=== PATIENT | male | born 2000 | race Caucasian/White ===

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

== ENCOUNTER 2020-04-19 08:53 | Emergency (ER) | payer OTHER, SELFPAY ==
[2020-04-19] MEDS ORDERED: ONDANSETRON 4 MG/2 ML VIAL ONE (09:44)
[2020-04-19] MEDS ORDERED: NA CHLORIDE 0.9% 1,000 ML ONE (09:44)
[2020-04-19] MEDS ORDERED: FAMOTIDINE 20 MG/2 ML VIAL IV ONE (09:44)
[2020-04-19 09:57] LABS: Basophils % 0.6 % (0-1.3); Hematocrit 45.6 % (39.6-49.0); Lymphocytes % 19.5 % (15.3-44.8); RBC Red Blood Cell Count 4.87 M/uL (4.33-5.43)
[2020-04-19 10:16] LABS: ALT/SGPT 19 U/L (12-78); AST/SGOT 7 U/L (15-37); Albumin 3.9 g/dL (3.4-5.0); Alkaline Phosphatase 83 U/L (45-117); BUN Blood Urea Nitrogen 12 mg/dL (7-18); Bicarbonate 31 mmol/L (21-32); Bilirubin Direct 0.2 mg/dL (0-0.2); Bilirubin Total 0.5 mg/dL (0.2-1.0); Glucose Level 88 mg/dL (74-106); Lipase 246 U/L (73-393); Potassium 4.2 mmol/L (3.5-5.1); Protein, Total 7.4 g/dL (6.4-8.2); Sodium Level 143 mmol/L (136-145)
[2020-04-19 10:32] LABS: Blood Morphology Comment NOT SEEN (NOT SEEN); Platelet Estimate ADEQ
--- NOTE | 2020-04-19 11:15 | RAD REPORT ---
EXAM DESCRIPTION: CT - Abdomen Pelvis W Contrast - 04/19/2020 10:37 am CLINICAL HISTORY: Abdominal pain COMPARISON: none. TECHNIQUE: Computed axial tomography of the abdomen pelvis was obtained. 100 cc Isovue-300 was admin istered intravenously. Oral contrast was not requested which limits evaluation of bowel and appendix. All CT scans are performed using dose optimization technique as appropriate and may include automated exposure control or mA/KV adjustment according to patient size. FINDINGS: Periportal hepatic edema. Spleen, pancreas, adrenal and kidneys appear unremarkable. There is no evidence of diverticulitis. The wall of the multiple loops of ileum is thickened. Small amount of ascites IMPRESSION: Thickening of the wall of multiple loops of ileum. This could be secondary to inflammati on, infection or ischemia Periportal hepatic edema is a nonspecific finding but can be associated with inflammation
[2020-04-19 11:27] LABS: Urine Blood NEGATIVE (NEG); Urine Glucose NEGATIVE (NEG); Urine Protein NEGATIVE (NEG); Urine pH 5.5 (5.0-7.0)
[2020-04-19] MEDS ORDERED: CIPROFLOXACIN 400mg IV 400 MG/200 ML BAG IV ONE (12:02)
[2020-04-19] MEDS ORDERED: METRONIDAZOLE 500mg IVPB 500 MG/100 ML BAG IV ONE (12:02)
--- NOTE | 2020-04-19 13:07 | EDPHYS ---
Physician Documentation [facility] Name: Jack Luna Age: 19 yrs Sex: Male : 2000 Arrival Date: 04/19/2020 Time: 08:56 Bed 18 Private MD: Johan Haynes HPI: 04/19 09:24 This 19 yrs old Male presents to ER via Ambulatory with complaints of jmm Abdominal Pain. 09:24 The patient presents with abdominal pain in the epigastric area. Onset: The jmm symptoms/episode began/occurred acutely, this morning. The symptoms do not radiate. Associated signs and symptoms: Pertinent negatives: nausea and vomiting, diarrhea, fever, shortness of breath, vomiting. The symptoms are described as achy, sharp. Modifying factors: The symptoms are alleviated by nothing, the symptoms are aggravated by nothing. The patient has not experienced similar symptoms in the past. Patient denies heavy etoh use or history of abdominal surgeries. Historical: - Allergies: 09:03 No Known Allergies; rb1 - Home Meds: 09:03 None [Active]; rb1 - PMHx: 09:03 kawasakis; rb1 - PSHx: 09:03 testicle; rb1 - Immunization history:: Adult Immunizations unknown. - Social history:: Smoking status: Patient reports the use of cigarette tobacco products, smokes one-half pack cigarettes per day. ROS: 09:24 Constitutional: Negative for fever, chills, and weight loss, Cardiovascular: Negative jmm for chest pain, palpitations, and edema, Respiratory: Negative for shortness of breath, cough, wheezing, and pleuritic chest pain. 09:24 Back: Negative for injury and pain, MS/Extremity: Negative for injury and deformity, Skin: Negative for injury, rash, and discoloration, Neuro: Negative for headache, weakness, numbness, tingling, and seizure, Psych: Negative for depression, anxiety, suicide ideation, homicidal ideation, and hallucinations, Allergy/Immunology: Negative for hives, rash, and allergies, Endocrine: Negative for neck swelling, polydipsia, polyuria, polyphagia, and marked weight changes. 09:24 Abdomen/GI: Positive for epigastric. Exam: 09:24 Constitutional: This is a well developed, well nourished patient who is awake, alert, jmm and in no acute distress. Head/Face: atraumatic. Eyes: EOMI, no conjunctival erythema appreciated ENT: Moist Mucus Membranes Neck: Trachea midline, Supple Chest/axilla: Normal chest wall appearance and motion. Cardiovascular: Regular rate and rhythm. No edema appreciated Respiratory: Normal respirations, no respiratory distress appreciated 09:24 Back: Normal ROM Skin: General appearance color normal MS/ Extremity: Moves all extremities, no obvious deformities appreciated, no edema noted to the lower extremities Neuro: Awake and alert, normal gait Psych: Behavior is normal, Mood is normal, Patient is cooperative and pleasant 09:24 Abdomen/GI: Inspection: abdomen appears normal, Bowel sounds: normal, Palpation: soft, moderate abdominal tenderness, in the epigastric area. Vital Signs: 09:03 BP 111 / 72; Pulse 72; Resp 17; Temp 98.8; Pulse Ox 99% ; Weight 53.52 kg; Height 5 ft. rb1 11 in. (180.34 cm); Pain 7/10; 10:00 BP 117 / 67; Pulse 63; Resp 16; Pulse Ox 99% ; rb1 10:54 BP 117 / 51; Pulse 67; Resp 16; Pulse Ox 100% ; rb1 11:53 BP 100 / 56; Pulse 61; Resp 17; Pulse Ox 98% ; rb1 13:00 BP 98 / 63; Pulse 59; Resp 16; Pulse Ox 100% ; rb1 09:03 Body Mass Index 16.46 (53.52 kg, 180.34 cm) rb1 MDM: 09:19 Patient medically screened. [facility] 13:04 Data reviewed: vital signs, nurses notes. Counseling: I had a detailed discussion with patsy the patient and/or guardian regarding: the historical points, exam findings, and any diagnostic results supporting the discharge/admit diagnosis, lab results, radiology results, the need for outpatient follow up, to return to the emergency department if symptoms worsen or persist or if there are any questions or concerns that arise at home. ED course: Patient is alert and non toxic in appearance in the ED. Patient is able to tolerate PO. I discussed the patient with Dr. Tyler whom recommends abx and will follow up with the patient for reevaluation. Patient is otherwise given strict return precautions. Patient understood and agrees with the plan of care. . 04/19 09:24 Order name: Basic Metabolic Panel; Complete Time: 10:17 [facility] 04/19 09:24 Order name: CBC with Diff; Complete Time: 10:35 [facility] 04/19 09:24 Order name: Hepatic Function; Complete Time: 10:17 [facility] 04/19 09:24 Order name: Lipase; Complete Time: 10:17 [facility] 04/19 10:03 Order name: Manual Differential; Complete Time: 10:35 [facility] 04/19 10:42 Order name: Urine Dipstick--Ancillary (enter results); Complete Time: 11:28 04/19 09:24 Order name: IV Saline Lock; Complete Time: 09:45 [facility] 04/19 09:24 Order name: Labs collected and sent; Complete Time: 09:46 [facility] 04/19 10:18 Order name: CT Abd/Pelvis - IV Contrast Only; Complete Time: 11:16 [facility] 04/19 09:24 Order name: Urine Dipstick-Ancillary (obtain specimen); Complete Time: 10:51 jm Administered Medications: 09:45 Drug: NS 0.9% 1000 ml Route: IV; Rate: 1 bolus; Site: right antecubital; rb1 11:03 Follow up: IV Status: Completed infusion rb1 09:45 Drug: Pepcid 20 mg Route: IVP; Site: right antecubital; rb1 10:00 Follow up: Response: No adverse reaction rb1 09:45 Drug: Zofran (Ondansetron) 4 mg Route: IVP; Site: right antecubital; rb1 10:00 Follow up: Response: No adverse reaction rb1 11:57 Drug: Cipro 400 mg Volume: 200 ml; Route: IVPB; Infused Over: 60 mins; Site: right rb1 antecubital; 12:57 Follow up: Response: No adverse reaction; IV Status: Completed infusion aa5 12:13 Drug: Flagyl 500 mg Volume: 100 ml; Route: IVPB; Rate: 200 ml/hr; Infused Over: 30 rb1 mins; Site: right antecubital; 12:45 Follow up: IV Status: Completed infusion aa5 Disposition: 13:52 Co-signature as Attending Physician, Johan HENRY I agree with the assessment and monica plan of care. Disposition: 04/19/20 13:06 Discharged to Home. Impression: Upper abdominal pain, unspecified. - Condition is Stable. - Discharge Instructions: Abdominal Pain, Adult. - Prescriptions for Zofran ODT 4 mg Oral tablet,disintegrating - place 1 tablet by TRANSLINGUAL route every 4-6 hours; 20 tablet. Bentyl 20 mg Oral Tablet - take 2 tablet by ORAL route every 6 hours As needed; 40 tablet. Flagyl 500 mg Oral Tablet - take 1 tablet by ORAL route every 8 hours for 10 days; 30 tablet. Pepcid 20 mg Oral Tablet - take 1 tablet by ORAL route every 12 hours for 10 days; 20 tablet. Cipro 500 mg Oral Tablet - take 1 tablet by ORAL route every 12 hours for 10 days; 20 tablet. - Medication Reconciliation Form, Thank You Letter, Antibiotic Education, Prescription Opioid Use form. - Follow up: Estrada Jaquez MD; When: 1 - 2 days; Reason: Recheck today's complaints, Continuance of care, Re-evaluation by your physician. Signatures: Dispatcher [employer] Johan Saravia MD MD cha Mickail, Joel, PA PA jmm Calderon, Audri, RN RN aa5 Deyanira Jamison RN RN rb1 Corrections: (The following items were deleted from the chart) 13:22 13:06 04/19/2020 13:06 Discharged to Home. Impression: Upper abdominal pain, aa5 unspecified. Condition is Stable. Forms are Medication Reconciliation Form, Thank You Letter, Antibiotic Education, Prescription Opioid Use. Follow up: Estrada Jaquez; When: 1 - 2 days; Reason: Recheck today's complaints, Continuance of care, Re-evaluation by your physician. patsy
--- NOTE | 2020-04-19 13:07 | ER ---
Nurse's Notes [facility] Name: Jack Luna Age: 19 yrs Sex: Male : 2000 Arrival Date: 04/19/2020 Time: 08:56 Bed 18 Private MD: Diagnosis: Upper abdominal pain, unspecified Presentation: 04/19 09:03 Chief complaint: Patient states: Woke up with abdominal pain this morning. Epi gastric rb1 area. Coronavirus screen: At this time, the client does not indicate any symptoms associated with coronavirus-19. Ebola Screen: Patient denies travel to an Ebola-affected area in the 21 days before illness onset. Initial Sepsis Screen: Does the patient meet any 2 criteria? No. Patient's initial sepsis screen is negative. Does the patient have a suspected source of infection? No. Patient's initial sepsis screen is negative. Risk Assessment: Do you want to hurt yourself or someone else? Patient reports no desire to harm self or others. Onset of symptoms was April 19, 2020. 09:03 Method Of Arrival: Ambulatory rb1 09:03 Acuity: VASU 3 rb1 Triage Assessment: 09:03 General: Appears in no apparent distress. comfortable, slender, Behavior is calm, rb1 cooperative, Denies fever. Pain: Complains of pain in epigastric area Pain currently is 7 out of 10 on a pain scale. Pain began this morning. Neuro: Level of Consciousness is awake, alert, obeys commands, Oriented to person, place, time, situation. Cardiovascular: Patient's skin is warm and dry. Respiratory: Airway is patent Respiratory effort is even, unlabored, Respiratory pattern is regular, symmetrical. GI: No signs and/or symptoms were reported involving the gastrointestinal system. : No signs and/or symptoms were reported regarding the genitourinary system. Musculoskeletal: Range of motion: intact in all extremities. Historical: - Allergies: 09: No Known Allergies; rb1 - Home Meds: : None [Active]; rb1 - PMHx: 09:03 kawasakis; rb1 - PSHx: : testicle; rb1 - Immunization history:: Adult Immunizations unknown. - Social history:: Smoking status: Patient reports the use of cigarette tobacco products, smokes one-half pack cigarettes per day. Screenin:03 Abuse screen: Denies threats or abuse. Nutritional screening: No deficits noted. rb1 Tuberculosis screening: No symptoms or risk factors identified. Fall Risk None identified. Assessment: 09:03 General: See triage assessment. rb1 10:00 Reassessment: Patient appears in no apparent distress at this time. No changes from rb1 previously documented assessment. 10:52 Reassessment: Patient appears in no apparent distress at this time. Patient and/or rb1 family updated on plan of care and expected duration. Pain level reassessed. Patient is alert, oriented x 3, equal unlabored respirations, skin warm/dry/pink. 11:48 Reassessment: Patient appears in no apparent distress at this time. Pt. resting with rb1 eyes closed, respirations even, unlabored. 12:22 Reassessment: Patient appears in no apparent distress at this time. Patient and/or rb1 family updated on plan of care and expected duration. Pain level reassessed. Patient is alert, oriented x 3, equal unlabored respirations, skin warm/dry/pink. 13:20 Reassessment: Patient is alert, oriented x 3, equal unlabored respirations, skin aa5 warm/dry/pink. Patient states feeling better. Vital Signs: 09:03 BP 111 / 72; Pulse 72; Resp 17; Temp 98.8; Pulse Ox 99% ; Weight 53.52 kg; Height 5 ft. rb1 11 in. (180.34 cm); Pain 7/10; 10:00 BP 117 / 67; Pulse 63; Resp 16; Pulse Ox 99% ; rb1 10:54 BP 117 / 51; Pulse 67; Resp 16; Pulse Ox 100% ; rb1 11:53 BP 100 / 56; Pulse 61; Resp 17; Pulse Ox 98% ; rb1 13:00 BP 98 / 63; Pulse 59; Resp 16; Pulse Ox 100% ; rb1 09:03 Body Mass Index 16.46 (53.52 kg, 180.34 cm) [facility] ED Course: 08:56 Patient arrived in ED. ag5 09:03 Vinny Stack PA is PHCP. [facility] 09:03 Johan Medrano MD is Attending Physician. [facility] 09:03 Deyanira Jamison, DANAE is Primary Nurse. rb1 09:03 Arm band placed on right wrist. rb1 09:03 Patient has correct armband on for positive identification. Bed in low position. Call rb1 light in reach. Side rails up X 1. Pulse ox on. NIBP on. 09:11 Triage completed. rb1 09:41 Inserted saline lock: 22 gauge in right antecubital area, using aseptic technique. rb1 Blood collected. 10:37 CT Abd/Pelvis - IV Contrast Only In Process Unspecified. EDMS 13:06 Estrada Jaquez MD is Referral Physician. patsy 13:20 No provider procedures requiring assistance completed. IV discontinued, intact, aa5 bleeding controlled, No redness/swelling at site. Pressure dressing applied. Administered Medications: 09:45 Drug: NS 0.9% 1000 ml Route: IV; Rate: 1 bolus; Site: right antecubital; rb1 11:03 Follow up: IV Status: Completed infusion rb1 09:45 Drug: Pepcid 20 mg Route: IVP; Site: right antecubital; rb1 10:00 Follow up: Response: No adverse reaction rb1 09:45 Drug: Zofran (Ondansetron) 4 mg Route: IVP; Site: right antecubital; rb1 10:00 Follow up: Response: No adverse reaction rb1 11:57 Drug: Cipro 400 mg Volume: 200 ml; Route: IVPB; Infused Over: 60 mins; Site: right rb1 antecubital; 12:57 Follow up: Response: No adverse reaction; IV Status: Completed infusion aa5 12:13 Drug: Flagyl 500 mg Volume: 100 ml; Route: IVPB; Rate: 200 ml/hr; Infused Over: 30 rb1 mins; Site: right antecubital; 12:45 Follow up: IV Status: Completed infusion aa5 Outcome: 13:06 Discharge ordered by MD. patsy 13:20 Discharged to home ambulatory, with family. aa5 13:20 Condition: stable 13:20 Discharge instructions given to patient, Instructed on discharge instructions, follow up and referral plans. medication usage, Demonstrated understanding of instructions, follow-up care, medications, Prescriptions given X 5 13:22 Patient left the ED. aa5 Signatures: Dispatcher [employer] EDMS Vinny Stack PA PA jmm Calderon, Audri, RN RN aa5 Deyanira Jamison, DANAE RN rb1 Lakeisha Johnson ag5 Corrections: (The following items were deleted from the chart) 13:23 13:20 Discharge instructions given to patient, Instructed on discharge instructions, aa5 follow up and referral plans. medication usage, Demonstrated understanding of instructions, follow-up care, medications, Prescriptions given X 4, aa5
[2020-04-19 13:50] VITALS: TEMP 98.8
[2020-04-19 13:54] VITALS: BP 100/56; O2SAT 98
== END 2020-04-19 13:22 | disposition home or self-care (01) ==
LOC: ER 08:53
DX: R10.13 Epigastric pain (principal); F17.210 Nicotine dependence, cigarettes, uncomplicated
CPT/HCPCS: 36415; 74177; 80048; 80076; 81003; 83690; 85025; 96361; 96365; 96375; 99284; J0744; J2405; J7030; Q9967

== ENCOUNTER 2022-03-05 20:45 | Emergency (ER) | payer SELFPAY ==
--- OUTSIDE RECORDS SUMMARY | 2022-03-05 20:48 | XMS REPORT | Continuity of Care Document ---
:2000 Author Organization [facility] t Address [facility] [place] [address] [place] [id number] Care Team Providers Name Role Phone Unavailable Unavailable Unavailable Problems This patient has no known problems. Allergies, Adverse Reactions, Alerts This patient has no known allergies or adverse reactions. Medications This patient has no known medications. Procedures This patient has no known procedures. Results This patient has no known results.
--- NOTE | 2022-03-05 21:57 | ER ---
Nurse's Notes [facility] Name: Jack Luna Age: 21 yrs Sex: Male : 2000 Arrival Date: 03/05/2022 Time: 20:47 Bed Waiting Private MD: Diagnosis: Encounter for other administrative examinations;Other abdominal pain Presentation: 03/05 21:45 Chief complaint: Patient states: "This morning I was having really bad pain epi gastric vc1 and lower right abdominal pain.". Chief complaint: Pt states he is not currently having pain but because it was so bad in the morning his job is requiring a release to go back to work. Coronavirus screen: Vaccine status: Patient reports being unvaccinated. Ebola Screen: No symptoms or risks identified at this time. Initial Sepsis Screen: Does the patient meet any 2 criteria? No. Patient's initial sepsis screen is negative. Does the patient have a suspected source of infection? No. Patient's initial sepsis screen is negative. Risk Assessment: Do you want to hurt yourself or someone else? Patient reports no desire to harm self or others. Onset of symptoms was March 05, 2022. 21:45 Method Of Arrival: Ambulatory vc1 21:45 Acuity: VASU 4 vc1 Triage Assessment: 21:49 General: Appears in no apparent distress. Behavior is calm, cooperative, appropriate vc1 for age. Pain: Complains of pain in epigastric area and right lower quadrant Pain does not radiate. Pain currently is 0 out of 10 on a pain scale. at worst was 6 out of 10 on a pain scale. Quality of pain is described as sharp. EENT: No deficits noted. Neuro: Level of Consciousness is awake, alert, obeys commands, Oriented to person, place, time, situation, Appropriate for age. Cardiovascular: Capillary refill < 3 seconds Patient's skin is warm and dry. Respiratory: Airway is patent Respiratory effort is even, unlabored, Respiratory pattern is regular, symmetrical. GI: Abdomen is flat, non-distended, Reports lower abdominal pain, epigastric pain. : No deficits noted. Derm: No signs and/or symptoms reported regarding the dermatologic system. Musculoskeletal: No signs and/or symptoms reported regarding the musculoskeletal system. Historical: - Allergies: 21:48 No Known Allergies; vc1 - Home Meds: 21:48 None [Active]; vc1 - PMHx: 21:48 kawasakis; vc1 - PSHx: 21:48 None; vc1 - Immunization history:: Adult Immunizations up to date, Client reports having NOT received the Covid vaccine. - Social history:: Smoking status: Patient reports the use of cigarette tobacco products, 3-4, Reported history of juuling and/or vaping. Screenin:51 Abuse screen: Denies threats or abuse. Nutritional screening: No deficits noted. vc1 Tuberculosis screening: No symptoms or risk factors identified. Fall Risk None identified. Assessment: 22:08 GI: Bowel sounds Abd is soft and non tender. vc1 Vital Signs: 21:45 BP 121 / 65; Pulse 48; Resp 18; Temp 97.1; Pulse Ox 100% ; Weight 52.16 kg; Height 5 vc1 ft. 10 in. (177.80 cm); Pain 0/10; 21:45 Body Mass Index 16.50 (52.16 kg, 177.80 cm) vc1 ED Course: 20:47 Patient arrived in ED. bp1 21:03 Johan Fairchild PA is PHCP. cp 21:03 Jesse Massey MD is Attending Physician. cp 21:48 Triage completed. vc1 21:51 Arm band placed on right wrist. EKG completed in triage. Results shown to MD. EKG vc1 completed in triage. Results shown to MD. 21:52 Patient has correct armband on for positive identification. vc1 22:08 No provider procedures requiring assistance completed. Patient did not have IV access vc1 during this emergency room visit. Administered Medications: No medications were administered Medication: 21:51 VIS not applicable for this client. vc1 Outcome: 21:57 Discharge ordered by MD. cp 22:08 Discharged to home ambulatory, with family. vc1 22:08 Condition: good 22:08 Discharge instructions given to patient, Instructed on discharge instructions, follow up and referral plans. Demonstrated understanding of instructions, follow-up care. 22:08 Patient left the ED. vc1 Signatures: Johan Fairchild PA PA cp María Green bp1 Codi Bustamante RN RN vc1
--- NOTE | 2022-03-05 21:58 | EDPHYS ---
Physician Documentation [facility] Name: Jack Luna Age: 21 yrs Sex: Male : 2000 Arrival Date: 03/05/2022 Time: 20:47 Bed Waiting Private MD: ED Physician Jesse Massey HPI: 03/05 21:52 This 21 yrs old Male presents to ER via Ambulatory with complaints of Abdominal Pain, cp Chest Pain. 21:52 The patient presents with abdominal pain in the epigastric area, right lower quadrant. cp Onset: The symptoms/episode began/occurred this morning, sent home from work due to pain. Took a nap and when he woke up this afternoon pain was gone. Patient reports he needs work note for employer to return. Denies any pain at this time. Associated signs and symptoms: none. Severity of pain: in the emergency department the pain has resolved and did so earlier today. Historical: - Allergies: 21:48 No Known Allergies; vc1 - Home Meds: 21:48 None [Active]; vc1 - PMHx: 21:48 kawasakis; vc1 - PSHx: 21:48 None; vc1 - Immunization history:: Adult Immunizations up to date, Client reports having NOT received the Covid vaccine. - Social history:: Smoking status: Patient reports the use of cigarette tobacco products, 3-4, Reported history of juuling and/or vaping. ROS: 21:54 Abdomen/GI: Positive for abdominal pain, Negative for nausea, vomiting, and diarrhea, cp constipation. 21:54 Eyes: Negative for injury, pain, redness, and discharge. cp 21:54 Constitutional: Negative for body aches, chills, fever, poor PO intake. 21:54 ENT: Negative for drainage from ear(s), ear pain, sore throat, difficulty swallowing, difficulty handling secretions. 21:54 Cardiovascular: Negative for chest pain. 21:54 Respiratory: Negative for cough, shortness of breath, wheezing. 21:54 Back: Negative for pain at rest, pain with movement. 21:54 Neuro: Negative for altered mental status, headache, weakness. 21:54 All other systems are negative. Exam: 21:55 Head/Face: Normocephalic, atraumatic. cp 21:55 Constitutional: The patient appears in no acute distress, alert, awake, non-toxic, well developed, well nourished. 21:55 Chest/axilla: Inspection: normal, Palpation: is normal, no crepitus, no tenderness. 21:55 Cardiovascular: Rate: bradycardic, Rhythm: regular. 21:55 Respiratory: the patient does not display signs of respiratory distress, Respirations: normal, no use of accessory muscles, no retractions, labored breathing, is not present, Breath sounds: are clear throughout, no decreased breath sounds, no stridor, no wheezing. 21:55 Abdomen/GI: Inspection: abdomen appears normal, Bowel sounds: active, all quadrants, Palpation: abdomen is soft and non-tender, in all quadrants. 21:55 Back: pain, is absent, ROM is normal. 21:55 Neuro: Orientation: to person, place \T\ time. Mentation: is normal. Vital Signs: 21:45 BP 121 / 65; Pulse 48; Resp 18; Temp 97.1; Pulse Ox 100% ; Weight 52.16 kg; Height 5 vc1 ft. 10 in. (177.80 cm); Pain 0/10; 21:45 Body Mass Index 16.50 (52.16 kg, 177.80 cm) vc1 MDM: 21:56 Data reviewed: vital signs, nurses notes, and as a result, I will discharge patient. cp Counseling: I had a detailed discussion with the patient and/or guardian regarding: the historical points, exam findings, and any diagnostic results supporting the discharge/admit diagnosis, to return to the emergency department if symptoms worsen or persist or if there are any questions or concerns that arise at home. 21:57 Patient medically screened. cp Administered Medications: No medications were administered Disposition: 03/06 04:56 Co-signature as Attending Physician, Jesse Massey MD. [email or web address] Disposition Summary: 03/05/22 21:57 Discharge Ordered Location: Home cp Problem: new cp Symptoms: are resolved cp Condition: Stable cp Diagnosis - Encounter for other administrative examinations cp - Other abdominal pain cp Followup: cp - With: Private Physician - When: 1 - 2 days - Reason: Worsening of condition Discharge Instructions: - Abdominal Pain, Adult cp - Form - Return To Work cp - Discharge Summary Sheet vc1 Forms: - Medication Reconciliation Form cp - Thank You Letter cp - Antibiotic Education cp - Work release form vc1 - Prescription Opioid Use cp Signatures: Johan Fairchild PA PA cp Jesse Massey MD MD [email or web address] Codi Bustamante RN RN vc1 Corrections: (The following items were deleted from the chart) 03/05 21:59 21:54 All other systems are negative, cp cp
[2022-03-06 00:21] VITALS: BP 121/65; TEMP 97.1; O2SAT 100
== END 2022-03-05 22:08 | disposition home or self-care (01) ==
LOC: ER 20:45
DX: R10.13 Epigastric pain (principal); R10.31 Right lower quadrant pain; Z72.0 Tobacco use
CPT/HCPCS: 99281

== ENCOUNTER 2023-10-28 16:14 | Emergency (ER) | payer SELFPAY ==
--- OUTSIDE RECORDS SUMMARY | 2023-10-28 16:17 | XMS REPORT | Continuity of Care Document ---
Author Name Unknown Address [address] [facility] [address] [place] [address] [facility] thconnect Address [address] [facility]. [address] [place] [address] Care Team Providers Care Heater Operator Name Role Phone Afshin Little Attending Clinician Unavailable Payers Payer Name Policy Type Policy Number Effective Date Expirati on Date Source Encounters Start Date/Time End Date/Time Encounter Type Admission Type Attending Clinicians Care Facility Care Department Encounter ID Source 2022-04-19 14:13:35 Outpatient [facility] [id number] [facility] 2020-09-28 00:00:00 2020-09-28 00:00:00 Outpatient Afshin Little [facility] [id number] [facility]
[2023-10-28] MEDS ORDERED: ONDANSETRON 4 MG/2 ML VIAL ONE (16:39)
[2023-10-28] MEDS ORDERED: NA CHLORIDE 0.9% 1,000 ML ONE ×2 (16:40→18:43)
[2023-10-28] MEDS ORDERED: MORPHINE 4 MG/ML SYR ONE (16:40)
[2023-10-28 17:06] LABS: Absolute Basophils 0.1 K/uL (0-0.5); Absolute Eosinophils 0.1 K/uL (0-0.5); Absolute Lymphocytes (CBC) 3.2 K/uL (0.7-4.9); Absolute Monocytes 0.9 K/uL (0.1-1.3); Absolute Neutrophil 11.9 K/uL (1.8-8.0); Basophils % 0.6 % (0-1.3); Eosinophils % 0.9 % (0-4.4); Hematocrit 42.8 % (39.6-49.0); Hemoglobin 14.5 g/dL (13.6-17.9); Lymphocytes % 19.7 % (15.3-44.8); MCH 31.9 pg (27.0-35.0); MCHC 33.8 g/dL (32.0-36.0); MCV 94.3 fL (80-100); MPV 7.6 fL (7.6-11.3); Monocytes % 5.5 % (3.3-12.3); Neutrophils % 73.3 % (41.7-73.7); Platelets 356 thou/uL (152-406); RBC Red Blood Cell Count 4.54 M/uL (4.33-5.43); Red Cell Distribution Width 13.7 % (12.1-15.2)
--- NOTE | 2023-10-28 17:31 | RAD REPORT ---
EXAM DESCRIPTION: CTAbdomen Pelvis W Contrast - 10/28/2023 5:05 pm CLINICAL HISTORY: Abdominal pain. ABD PAIN COMPARISON: <Comparisons> TECHNIQUE: Biphasic CT imaging of the abdomen and pelvis was performed with 100 ml non-ionic IV cont rast. All CT scans are performed using dose optimization technique as appropriate and may include automated exposure control or mA/KV adjustment according to patient size. FINDINGS: The lung bases are clear. The liver, spleen, pancreas, adrenal glands and kidneys are within normal limits. No bowel obstruction, free air, free fluid or abscess. The appendix is normal. No evidence of signi ficant lymphadenopathy. No suspicious bony findings. IMPRESSION: No acute intra-abdominal or pelvic finding.
[2023-10-28 17:41] LABS: Albumin 4.3 g/dL (3.4-5.0); Albumin/Globulin Ratio 1.2 (1.1-1.8); Anion Gap 7.5 mEq/L (5.0-15.0); Bilirubin Total 0.6 mg/dL (0.2-1.0); Globulin 3.5 g/dL (2.3-3.5); Potassium 3.5 mEq/L (3.5-5.1); Protein, Total 7.8 g/dL (6.4-8.2)
[2023-10-28] MEDS ORDERED: FENTANYL CITR 100 MCG/2 ML ONE (17:56)
[2023-10-28 18:57] LABS: Sqamous Epithelial <5 /HPF (None Seen); Urine Bacteria <20 /HPF (<20); Urine Bilirubin NEGATIVE (Negative); Urine Blood Negative (Negative); Urine Clarity Clear (Clear); Urine Color Light-Yellow (Yellow); Urine Culture Reflex Order NOT NEEDED; Urine Glucose 1+ (Negative); Urine Ketones NEGATIVE (Negative); Urine Microscopic Reflex YN ORDER UMIC; Urine Mucus Slight /HPF (None Seen); Urine Nitrite NEGATIVE (Negative); Urine Protein TRACE (Negative); Urine RBC <5 /HPF (None Seen); Urine Urobilinogen Normal (Normal); Urine WBC None Seen /HPF (<5); Urine pH 5.5 (5.0-7.0)
[2023-10-28 18:58] LABS: Specific Gravity > 1.030 (1.005-1.030)
--- NOTE | 2023-10-28 19:02 | EDPHYS ---
Physician Documentation [facility] Name: Jack Luna Age: 23 yrs Sex: Male : 2000 Arrival Date: 10/28/2023 Time: 16:14 Bed 19 Private MD: ED Physician Virgilio Vann HPI: 10/27 16:17 This 23 yrs old Male presents to ER via EMS with complaints of Abdominal Pain. jh7 16:17 The patient presents with abdominal pain right lower quadrant. Onset: The jh7 symptoms/episode began/occurred 3 hour(s) ago. The symptoms do not radiate. Associated signs and symptoms: Pertinent positives: nausea and vomiting, Pertinent negatives: blood in stools, constipation, diarrhea, dysuria, fever, palpitations, shortness of breath, testicular pain. Patient reports eating 2 hotdogs and a big red for lunch and states that pain started shortly after that.. 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 - Infectious Disease History:: Denies. - Social history:: Smoking status: Patient denies any tobacco usage or history of. ROS: 16:17 Constitutional: Negative for fever, chills, and weight loss, Eyes: Negative for injury, jh7 pain, redness, and discharge, Neck: Negative for injury, pain, and swelling, Cardiovascular: Negative for chest pain, palpitations, and edema, Respiratory: Negative for shortness of breath, cough, wheezing, and pleuritic chest pain, Back: Negative for injury and pain, MS/Extremity: Negative for injury and deformity, Skin: Negative for injury, rash, and discoloration, Neuro: Negative for headache, weakness, numbness, tingling, and seizure, 16:17 Abdomen/GI: Positive for abdominal pain, nausea and vomiting, Negative for diarrhea, constipation, black/tarry stool, rectal pain, rectal bleeding, 16:17 All other systems are negative, Exam: 16:17 Head/Face: Normocephalic, atraumatic. Eyes: Pupils equal round and reactive to light, jh7 extra-ocular motions intact. Lids and lashes normal. Conjunctiva and sclera are non-icteric and not injected. Cornea within normal limits. Periorbital areas with no swelling, redness, or edema. Neck: Trachea midline, no thyromegaly or masses palpated, and no cervical lymphadenopathy. Supple, full range of motion without nuchal rigidity, or vertebral point tenderness. No Meningismus. Cardiovascular: Regular rate and rhythm with a normal S1 and S2. No gallops, murmurs, or rubs. Normal PMI, no JVD. No pulse deficits. Respiratory: Lungs have equal breath sounds bilaterally, clear to auscultation and percussion. No rales, rhonchi or wheezes noted. No increased work of breathing, no retractions or nasal flaring. Back: No spinal tenderness. No costovertebral tenderness. Full range of motion. Skin: Warm, dry with normal turgor. Normal color with no rashes, no lesions, and no evidence of cellulitis. MS/ Extremity: Pulses equal, no cyanosis. Neurovascular intact. Full, normal range of motion. Neuro: Awake and alert, GCS 15, oriented to person, place, time, and situation. Motor strength 5/5 in all extremities. Sensory grossly intact. Normal gait. 16:17 Constitutional: The patient appears alert, awake, in obvious pain, 16:17 Abdomen/GI: Inspection: abdomen appears normal, Bowel sounds: normal, Palpation: soft, moderate abdominal tenderness, in the left lower quadrant and right lower quadrant, Vital Signs: 16:32 BP 143 / 56; Pulse 55; Resp 19 S; Temp 97.2(TE); Pulse Ox 100% on R/A; Weight 53.07 kg as6 (R); Height 5 ft. 10 in. (R); Pain 8/10; 16:58 BP 139 / 70; Pulse 86; Resp 18; Pulse Ox 100% on R/A; Pain 10/10; ld1 18:00 Pain 9/10; ld1 18:40 BP 133 / 68; Pulse 61; Resp 18; Pulse Ox 96% on R/A; Pain 7/10; ld1 19:04 BP 133 / 68; Pulse 59; Resp 17 S; Pulse Ox 100% on R/A; ha1 16:32 Body Mass Index 16.79 (53.07 kg, 177.8 cm) as6 16:32 Pain Scale: Adult as6 16:58 Pain Scale: Adult ld1 18:00 Pain Scale: Adult ld1 18:40 Pain Scale: Adult ld1 MDM: 16:16 Patient medically screened. [facility] 19:09 Differential diagnosis: appendicitis, bowel obstruction, cholecystitis, Cholelithiasis, jh7 diverticulitis, gastritis, gastroesophageal reflux disease, Irritable bowel syndrome, non-specific abd pain, Peritonitis, Pyelonephritis, Ureterolithiasis, urinary tract infection. Data reviewed: vital signs, nurses notes, lab test result(s), radiologic studies, CT scan. Consideration of Admission/Observation Escalation of care including admission/observation considered. I considered the following discharge prescriptions or medication management in the emergency department Medications were administered in the Emergency Department. See MAR. Historians other than the Patient: Parent: mom. Counseling: I had a detailed discussion with the patient and/or guardian regarding the historical points, exam findings, and any diagnostic results supporting the discharge/admit diagnosis, to return to the emergency department if symptoms worsen or persist or if there are any questions or concerns that arise at home. Response to treatment: the patient's symptoms have markedly improved after treatment. ED course: Patient passed p.o. challenge. He stated that his abdomen was no longer tender and that he felt much better after IV fluid administration. Leukocytosis likely secondary to the extensive vomiting. Advised to take medications as directed and return to the ER with any new concerning symptoms. Patient remained hemodynamically stable throughout the ER visit.. 10/27 16:23 Order name: CBC with Diff; Complete Time: 17:14 [facility] 10/27 16:23 Order name: CMP; Complete Time: 17:51 [facility] 10/27 16:23 Order name: Lipase; Complete Time: 17:51 [facility] 10/27 16:23 Order name: Urinalysis w/ reflexes; Complete Time: 18:59 [facility] 10/27 16:23 Order name: CT Abd/Pelvis - IV Contrast Only; Complete Time: 17:38 [facility] 10/27 16:23 Order name: IV Saline Lock; Complete Time: 16:56 [facility] 10/27 16:23 Order name: Labs collected and sent; Complete Time: 16:56 [facility] 10/27 18:10 Order name: PO challenge; Complete Time: 18:41 [facility] Administered Medications: 16:56 Drug: NS 0.9% IV 1000 ml IV at 1 bolus Per protocol; 1000 mL bolus Route: IV; Rate: 1 ld1 bolus; Site: right antecubital; 16:56 Drug: Ondansetron IVP 4 mg IVP once; over 2 minutes Route: IVP; Site: right antecubital;ld1 16:56 Drug: morphine IVP or IV 4 mg IVP once over 4 mins Route: IVP; Infused Over: 4 mins; ld1 Site: right antecubital; 18:04 Drug: fentaNYL (PF) IVP 50 mcg IVP once Route: IVP; Site: right antecubital; ld1 18:46 Drug: NS 0.9% IV 1000 ml IV at 1 bolus Per protocol; 1000 mL bolus Route: IV; Rate: 1 ld1 bolus; Site: right antecubital; 19:30 Follow up: Response: No adverse reaction; IV Status: Completed infusion; IV Intake: ha1 1000ml Disposition Summary: 10/28/23 19:01 Discharge Ordered Notes: Location: Home [facility] Problem: new [facility] Symptoms: have improved [facility] Condition: Stable [facility] Diagnosis - Lower abdominal pain, unspecified [facility] - Nausea with vomiting, unspecified [facility] - Leukocytosis [facility] Followup: [facility] - With: Private Physician - When: 2 - 3 days - Reason: Recheck today's complaints Discharge Instructions: - Discharge Summary Sheet [facility] - Abdominal Pain, Adult [facility] - Nausea and Vomiting, Adult [facility] Forms: - Medication Reconciliation Form [facility] - Thank You Letter [facility] - Patient Portal Instructions [facility] - Leadership Thank You Letter [facility] Prescriptions: - ondansetron 4 mg Oral Tablet,disintegrating - take 1 tablet ORAL route every 4-6 hours As needed; 20 tablet; Refills: 0, [facility] Product Selection Permitted - Levsin 0.125 mg Oral Tablet - take 1 tablet ORAL route every 8 hours; 30 tablet; Refills: 0, Product [facility] Selection Permitted Signatures: [facility]patcher [facility] EDShazia Garza RN RN ld1 Fernie Jacobs RN RN as6 Jamia Lester FNP ENVIRONMENTAL ENGINEERING INTERN 7 Krys Silva RN ha1 Corrections: (The following items were deleted from the chart) 16:24 16:24 CBC+H.LAB.BRZ ordered. EDMS EDMS 16:24 16:24 COMPREHENSIVE METABOLIC PANEL+C.LAB.BRZ ordered. EDMS EDMS 16:24 16:24 LIPASE+C.LAB.BRZ ordered. EDMS EDMS 16:24 16:24 Urinalysis+U.LAB.BRZ ordered. EDMS EDMS 16:24 16:24 Abdomen Pelvis W Con+CT.RAD.BRZ ordered. EDMS EDMS 19:12 16:17 Abdomen/GI: Inspection: abdomen appears normal, Bowel sounds: normal, Palpation: jh7 soft, moderate abdominal tenderness, in the right lower quadrant, jh7
--- NOTE | 2023-10-28 19:02 | ER ---
Nurse's Notes [facility] Name: Jack Luna Age: 23 yrs Sex: Male : 2000 Arrival Date: 10/28/2023 Time: 16:14 Bed 19 Private MD: Diagnosis: Lower abdominal pain, unspecified;Nausea with vomiting, unspecified;Leukocytosis Presentation: 10/27 16:17 Chief complaint: EMS states: called out for abdominal pain, n/v. Coronavirus screen: At as6 this time, the client does not indicate any symptoms associated with coronavirus-19. Ebola Screen: No symptoms or risks identified at this time. Initial Sepsis Screen: Does the patient meet any 2 criteria? No. Patient's initial sepsis screen is negative. Does the patient have a suspected source of infection? No. Patient's initial sepsis screen is negative. Risk Assessment: Do you want to hurt yourself or someone else? Patient reports no desire to harm self or others. Onset of symptoms was October 28, 2023. 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 - Infectious Disease History:: Denies. - Social history:: Smoking status: Patient denies any tobacco usage or history of. Screenin:00 [facility] ED Fall Risk Assessment (Adult) History of falling in the last 3 months, ld1 including since admission No falls in past 3 months (0 pts). Abuse screen: Denies threats or abuse. Denies injuries from another. Nutritional screening: No deficits noted. Tuberculosis screening: No symptoms or risk factors identified. Assessment: 16:58 General: Appears in no apparent distress. uncomfortable, Behavior is anxious, crying, ld1 fussy. Pain: Complains of pain in suprapubic area, right lower quadrant and left lower quadrant Pain does not radiate. Pain currently is 10 out of 10 on a pain scale. Quality of pain is described as throbbing, Pain began suddenly, Is continuous. Neuro: Level of Consciousness is awake, alert, obeys commands, Oriented to person, place, time, situation. Cardiovascular: Capillary refill < 3 seconds Patient's skin is warm and dry. Respiratory: Airway is patent Respiratory effort is even, unlabored. GI: Abdomen is flat, non-distended, Reports lower abdominal pain, nausea, vomiting. : No signs and/or symptoms were reported regarding the genitourinary system. EENT: No signs and/or symptoms were reported regarding the EENT system. Derm: No signs and/or symptoms reported regarding the dermatologic system. Musculoskeletal: No signs and/or symptoms reported regarding the musculoskeletal system. 19:02 General: Appears comfortable, Behavior is calm, cooperative. Pain: Complains of pain in ha1 abdomen Pain does not radiate. Pain currently is 2 out of 10 on a pain scale. Quality of pain is described as crampy. Neuro: Level of Consciousness is awake, alert, obeys commands, Oriented to person, place, time, situation. Cardiovascular: Patient's skin is warm and dry. Respiratory: Airway is patent Respiratory effort is even, unlabored, Respiratory pattern is regular, symmetrical. GI: Abdomen is flat, non-distended, Bowel sounds present X 4 quads. Reports lower abdominal pain. Musculoskeletal: Circulation, motion, and sensation intact. Vital Signs: 16:32 BP 143 / 56; Pulse 55; Resp 19 S; Temp 97.2(TE); Pulse Ox 100% on R/A; Weight 53.07 kg as6 (R); Height 5 ft. 10 in. (R); Pain 8/10; 16:58 BP 139 / 70; Pulse 86; Resp 18; Pulse Ox 100% on R/A; Pain 10/10; ld1 18:00 Pain 9/10; ld1 18:40 BP 133 / 68; Pulse 61; Resp 18; Pulse Ox 96% on R/A; Pain 7/10; ld1 19:04 BP 133 / 68; Pulse 59; Resp 17 S; Pulse Ox 100% on R/A; ha1 16:32 Body Mass Index 16.79 (53.07 kg, 177.8 cm) as6 16:32 Pain Scale: Adult as6 16:58 Pain Scale: Adult ld1 18:00 Pain Scale: Adult ld1 18:40 Pain Scale: Adult ld1 ED Course: 16:16 Patient arrived in ED. as6 16:16 [facility]ester FNP [facility] jh7 16:16 Virgilio Vann MD is Attending Physician. jh7 16:17 Arm band placed on. as6 16:18 Triage completed. as6 16:38 Shazia Doss, DANAE is Primary Nurse. ld1 16:56 No provider procedures requiring assistance completed. Inserted saline lock: 20 gauge ld1 in right antecubital area, using aseptic technique. Blood collected. 17:00 Patient has correct armband on for positive identification. Placed in gown. Bed in low ld1 position. Call light in reach. Side rails up X2. gambling monitor on. Pulse ox on. NIBP on. Door closed. Noise minimized. Warm blanket given. 17:07 CT Abd/Pelvis - IV Contrast Only In Process Unspecified. EDMS 18:41 Urinalysis w/ reflexes Sent. ld1 19:30 Provided Education on: medication administration . ha1 19:30 IV discontinued, intact, bleeding controlled, No redness/swelling at site. Pressure ha1 dressing applied. Administered Medications: 16:56 Drug: NS 0.9% IV 1000 ml IV at 1 bolus Per protocol; 1000 mL bolus Route: IV; Rate: 1 ld1 bolus; Site: right antecubital; 16:56 Drug: Ondansetron IVP 4 mg IVP once; over 2 minutes Route: IVP; Site: right antecubital;ld1 16:56 Drug: morphine IVP or IV 4 mg IVP once over 4 mins Route: IVP; Infused Over: 4 mins; ld1 Site: right antecubital; 18:04 Drug: fentaNYL (PF) IVP 50 mcg IVP once Route: IVP; Site: right antecubital; ld1 18:46 Drug: NS 0.9% IV 1000 ml IV at 1 bolus Per protocol; 1000 mL bolus Route: IV; Rate: 1 ld1 bolus; Site: right antecubital; 19:30 Follow up: Response: No adverse reaction; IV Status: Completed infusion; IV Intake: ha1 1000ml Medication: 16:58 VIS not applicable for this client. ld1 Intake: 19:30 IV: 1000ml; Total: 1000ml. ha1 Outcome: 19:01 Discharge ordered by . 7 19:30 Condition: stable ha1 19:30 Discharged to home via wheelchair, with family, ha1 19:30 Discharge instructions given to patient, family, Instructed on discharge instructions, follow up and referral plans. medication usage, Demonstrated understanding of instructions, follow-up care, medications, 19:30 Patient left the ED. ha1 Signatures: Dispatcher [employer] EDMS Shazia Doss, RN RN ld1 Fernie Jacobs RN RN as6 Jamia Lester, SPECIAL DAY CLASS TEACHER SPECIAL DAY CLASS TEACHER jh7 Krys Silva RN RN ha1 Corrections: (The following items were deleted from the chart) 19:42 19:41 Patient left the ED. ha1 ha1
[2023-10-29 02:22] VITALS: TEMP 97.2; O2SAT 100
[2023-10-29 03:06] VITALS: BP 133/68
== END 2023-10-28 19:41 | disposition home or self-care (01) ==
LOC: ER 16:14
DX: R10.31 Right lower quadrant pain (principal); R11.2 Nausea with vomiting, unspecified; D72.829 Elevated white blood cell count, unspecified
CPT/HCPCS: 36415; 74177; 80053; 81001; 83690; 85025; 96361; 96374; 96375; 99285; J2405; J3010; J7030; Q9967